=== PATIENT | male | born 1960 | race Caucasian/White ===

== ENCOUNTER 2017-10-22 20:59 | Emergency (ER) | payer OTHER ==
[~2017-10-22] VITALS: Ht 188 cm; Wt 129.3 kg
[2017-10-23 00:25] VITALS: BP 127/66
== END 2017-10-23 00:26 | disposition home or self-care (01) ==
LOC: EME 20:59
DX: R09.89 Other specified symptoms and signs involving the circulatory and respiratory systems (principal); Z87.19 Personal history of other diseases of the digestive system; Z88.0 Allergy status to penicillin
CPT/HCPCS: 71045; 99281; 99283